=== PATIENT | male | born 1955 | race Caucasian/White ===

== ENCOUNTER 2025-01-30 17:54 | Inpatient (IN) | payer BC ==
[2025-01-30] MEDS ORDERED: CLINDAMYCIN 600MG PREMIX IVPB 600 MG/50 ML BAG IVPB ONE (19:35)
[2025-01-30 19:36] LABS: ABSOLUTE IMMATURE GRANULOCYTES 0.03 x10^3/uL (0.0-0.031); BASOPHILS # 0.03 x10^3/uL (0.01-0.08); EOSINOPHIL % 1.5 % (0.8-7.0); EOSINOPHILS # 0.15 x10^3/uL (0.04-0.54); MCHC 31.6 g/dl (32.3-36.5); MEAN CELL VOLUME 78.4 fl (79.0-92.2); MEAN PLT VOLUME 10.2 fl (9.4-12.4); MONOCYTE # 0.86 x10^3/uL (0.30-0.82); MONOCYTE % 8.5 % (5.3-12.2); RDW 14.0 % (12.2-16.6)
[2025-01-30] MEDS ORDERED: BACITRACIN 0.9 GM PACKET ONE (19:45)
[2025-01-30 19:59] LABS: CO2 29 mmol/L (21-32)
[2025-01-30 20:02] LABS: CREATININE 0.9 mg/dL (0.55-1.3); SGOT/AST 22 U/L (15-37); SGPT/ALT 25 U/L (13-61)
[2025-01-30 20:04] LABS: TOT PROT 7.6 g/dl (6.4-8.2)
[2025-01-30 20:05] LABS: ALK PHOS 72 U/L (45-117)
[2025-01-30 20:31] LABS: GLUCOSE,RANDOM 45 mg/dL (74-106)
[2025-01-30] MEDS: BACITRACIN/POLYMYXIN B SULFATE 15 GM TUBE TP SCH (20:37)
[2025-01-30] MEDS: CLINDAMYCIN 900 MG PREMIX IVPB 900 MG/50 ML BAG IVPB ONE (20:38)
[2025-01-30 20:56] LABS: HIV INTERPRETATION NEGATIVE (NEGATIVE)
[2025-01-30 20:57] LABS: HCV DIAGNOSTIC IN-HOUSE W/RFLX NON-REACTIVE (NONREACTIVE)
[2025-01-30] MEDS: CIPROFLOXACIN 400 MG/D5W 400 MG/200 ML IVPB IVPB ONE (20:59)
[2025-01-30] MEDS ORDERED: VANCOMYCIN/WATER 1250 MG 1,250 MG/250 ML BAG IVPB ONE (21:18)
[2025-01-30] MEDS: VANCOMYCIN/WATER 1250 MG 1,250 MG/250 ML BAG IVPB ONE (21:25)
[2025-01-31] MEDS: morphine CARPU-JECT 2 MG/1 ML DISP.SYRIN IVPUSH PRN (02:11)
[2025-01-31] MEDS: ACETAMINOPHEN 1000 MG/100 ML BAG IVPB PRN (04:58)
[2025-01-31 05:51] VITALS: BMI 25.1
[2025-01-31] MEDS ORDERED: INSULIN GLARGINE (LANTUS) 100 UNITS/ML UNITS SQ SCH (07:00)
[2025-01-31] MEDS: PANTOPRAZOLE 20 MG TABLET PO SCH (07:17)
[2025-01-31] MEDS: INSULIN ASPART SLIDING SCALE (NOVOLOG) 1 VIAL SQ SCH (07:17)
[2025-01-31] MEDS: ENALAPRIL MALEATE 5 MG TABLET PO SCH (09:03)
[2025-01-31] MEDS: PREGABALIN 100 MG CAPSULE PO SCH (09:03)
[2025-01-31] MEDS: ENOXAPARIN NA (PORCINE) 40 MG/0.4 ML DISP.SYRIN SQ SCH (09:03)
[2025-01-31] MEDS: ASPIRIN COATED 81 MG TABLET.EC PO SCH (09:03)
[2025-01-31 11:07] LABS: MCHC 32.0 g/dl (32.3-36.5); MEAN CELL VOLUME 77.1 fl (79.0-92.2); MEAN PLT VOLUME 10.4 fl (9.4-12.4); RDW 13.6 % (12.2-16.6)
[2025-01-31 11:40] LABS: CO2 30.0 mmol/L (21-32); GLUCOSE,RANDOM 235.0 mg/dL (74-106)
[2025-01-31 11:43] LABS: SGOT/AST 13.0 U/L (15-37); SGPT/ALT 18.0 U/L (13-61)
[2025-01-31 11:44] LABS: CREATININE 0.9 mg/dL (0.55-1.3)
[2025-01-31 11:45] LABS: TOT PROT 6.3 g/dl (6.4-8.2)
[2025-01-31 11:46] LABS: ALK PHOS 59.0 U/L (45-117)
[2025-01-31] MEDS: VANCOMYCIN PREMIX 1.5 GM 1,500 MG/300 ML BAG IVPB SCH (12:09)
[2025-01-31] MEDS: CEFEPIME 2 GM in DEXTROSE 5%-WATER 100 ML IVPB SCH (15:51)
[2025-01-31] MEDS: ATORVASTATIN CA 10 MG TABLET (FP) PO SCH (21:03)
[2025-02-01] MEDS: VANCOMYCIN/WATER FOR INJ (PEG) 1,000 MG/200 ML BAG IVPB SCH (00:43)
[2025-02-01 09:15] LABS: ABSOLUTE IMMATURE GRANULOCYTES 0.02 x10^3/uL (0.0-0.031); BASOPHILS # 0.04 x10^3/uL (0.01-0.08); EOSINOPHIL % 2.5 % (0.8-7.0); EOSINOPHILS # 0.16 x10^3/uL (0.04-0.54); MCHC 31.0 g/dl (32.3-36.5); MEAN CELL VOLUME 78.5 fl (79.0-92.2); MEAN PLT VOLUME 10.5 fl (9.4-12.4); MONOCYTE # 0.53 x10^3/uL (0.30-0.82); MONOCYTE % 8.4 % (5.3-12.2); RDW 13.7 % (12.2-16.6)
[2025-02-01 09:46] LABS: TOT PROT 6.9 g/dl (6.4-8.2)
[2025-02-01 09:47] LABS: ALK PHOS 66.0 U/L (45-117)
[2025-02-01 09:49] LABS: SGPT/ALT 19.0 U/L (13-61)
[2025-02-01 09:52] LABS: SGOT/AST 12.0 U/L (15-37)
[2025-02-01 09:55] LABS: CO2 28.0 mmol/L (21-32)
[2025-02-01 09:56] LABS: GLUCOSE,RANDOM 193.0 mg/dL (74-106)
[2025-02-01 09:59] LABS: CREATININE 0.9 mg/dL (0.55-1.3)
[2025-02-01] MEDS: ATORVASTATIN CA 20 MG TABLET (FP) PO SCH (21:49)
[2025-02-02] MEDS ORDERED: VANCOMYCIN PREMIX 1.5 GM 1,500 MG/300 ML BAG IVPB SCH (09:00)
[2025-02-02 09:11] LABS: CO2 29.0 mmol/L (21-32)
[2025-02-02 09:12] LABS: GLUCOSE,RANDOM 216.0 mg/dL (74-106)
[2025-02-02 09:15] LABS: CREATININE 0.9 mg/dL (0.55-1.3)
[2025-02-02] MEDS: INSULIN ASPART SLIDING SCALE (NOVOLOG) 1 VIAL SQ SCH (21:28)
[2025-02-02] MEDS: INSULIN GLARGINE (LANTUS) 100 UNITS/ML UNITS SQ SCH (21:29)
[2025-02-03 08:31] LABS: MCHC 31.8 g/dl (32.3-36.5); MEAN CELL VOLUME 77.6 fl (79.0-92.2); MEAN PLT VOLUME 10.4 fl (9.4-12.4); RDW 13.5 % (12.2-16.6)
[2025-02-03 09:19] LABS: CO2 29.0 mmol/L (21-32); GLUCOSE,RANDOM 165.0 mg/dL (74-106)
[2025-02-03 09:22] LABS: CREATININE 0.9 mg/dL (0.55-1.3)
[2025-02-03] MEDS: INSULIN GLARGINE (LANTUS) 100 UNITS/ML UNITS SQ SCH (22:13)
[2025-02-04 08:50] LABS: MCHC 31.2 g/dl (32.3-36.5); MEAN CELL VOLUME 78.3 fl (79.0-92.2); MEAN PLT VOLUME 10.4 fl (9.4-12.4); RDW 13.5 % (12.2-16.6)
[2025-02-04 09:17] LABS: ACTIVATED PTT 32.2 SECONDS (25.2-36.5); INR 1.14 (0.83-1.09); PROTHROMBIN TIME (PATIENT) 12.4 SEC (9.7-13.0)
[2025-02-04 09:46] LABS: CO2 27.0 mmol/L (21-32)
[2025-02-04 09:47] LABS: GLUCOSE,RANDOM 141.0 mg/dL (74-106)
[2025-02-04 09:50] LABS: CREATININE 0.9 mg/dL (0.55-1.3)
[2025-02-06 08:42] LABS: ABSOLUTE IMMATURE GRANULOCYTES 0.03 x10^3/uL (0.0-0.031); BASOPHILS # 0.06 x10^3/uL (0.01-0.08); EOSINOPHIL % 3.5 % (0.8-7.0); EOSINOPHILS # 0.28 x10^3/uL (0.04-0.54); MCHC 31.7 g/dl (32.3-36.5); MEAN CELL VOLUME 77.0 fl (79.0-92.2); MEAN PLT VOLUME 10.1 fl (9.4-12.4); MONOCYTE # 0.53 x10^3/uL (0.30-0.82); MONOCYTE % 6.6 % (5.3-12.2); RDW 13.4 % (12.2-16.6)
[2025-02-06 08:49] LABS: INR 1.14 (0.83-1.09); PROTHROMBIN TIME (PATIENT) 12.4 SEC (9.7-13.0)
[2025-02-06 09:39] LABS: CO2 27.0 mmol/L (21-32); GLUCOSE,RANDOM 146.0 mg/dL (74-106)
[2025-02-06 09:42] LABS: CREATININE 0.9 mg/dL (0.55-1.3); SGOT/AST 19.0 U/L (15-37); SGPT/ALT 25.0 U/L (13-61)
[2025-02-06 09:43] LABS: TOT PROT 6.8 g/dl (6.4-8.2)
[2025-02-06 09:45] LABS: ALK PHOS 70.0 U/L (45-117)
[2025-02-06] MEDS ORDERED: LIDOCAINE HCL 2% (20ML MULTI-DOSE VIAL) ONE (10:10)
[2025-02-06] MEDS ORDERED: BUPIVACAINE HCL/PF 0.5% (5MG/ML) 10 ML VIAL ONE (10:10)
[2025-02-06] MEDS ORDERED: ONDANSETRON 4 MG/2 ML VIAL IVPUSH PRN ×2 (11:04→13:01)
[2025-02-06] MEDS ORDERED: LACTATED RINGERS SOLUTION 1,000 ML IV SCH (11:15)
[2025-02-06] MEDS ORDERED: MIDAZOLAM HCL 2 MG/2 ML SINGLE DOSE VIAL ONE (11:59)
[2025-02-06] MEDS ORDERED: LIDOCAINE HCL 1%, 10 MG/ML (20ML VIAL) ONE (12:03)
[2025-02-06] MEDS: LIDOCAINE HCL 2% (50ML VIAL) INF ONE ×2 (12:29)
[2025-02-06] MEDS: BUPIVACAINE HCL/PF 0.5% (5 MG/ML) 30 ML VIAL IJ ONE ×2 (12:29)
[2025-02-06] MEDS: VANCOMYCIN/WATER FOR INJ (PEG) 1,000 MG/200 ML BAG IVPB SCH (15:30)
[2025-02-06] MEDS: INSULIN ASPART SLIDING SCALE (NOVOLOG) 1 VIAL SQ SCH (17:12)
[2025-02-06] MEDS: ATORVASTATIN CA 20 MG TABLET (FP) PO SCH (22:07)
[2025-02-06] MEDS: INSULIN GLARGINE (LANTUS) 100 UNITS/ML UNITS SQ SCH (22:07)
[2025-02-06] MEDS: LACTATED RINGERS SOLUTION 1,000 ML IV SCH (22:13)
[2025-02-07] MEDS ORDERED: VANCOMYCIN/WATER FOR INJ (PEG) 1,000 MG/200 ML BAG IVPB SCH
[2025-02-07] MEDS: PANTOPRAZOLE 20 MG TABLET PO SCH (07:22)
[2025-02-07 08:41] LABS: MCHC 31.8 g/dl (32.3-36.5); MEAN CELL VOLUME 77.0 fl (79.0-92.2); MEAN PLT VOLUME 10.4 fl (9.4-12.4); RDW 13.3 % (12.2-16.6)
[2025-02-07 09:39] LABS: CO2 30.0 mmol/L (21-32)
[2025-02-07 09:40] LABS: GLUCOSE,RANDOM 106.0 mg/dL (74-106)
[2025-02-07 09:42] LABS: CREATININE 0.8 mg/dL (0.55-1.3); SGOT/AST 18.0 U/L (15-37); SGPT/ALT 23.0 U/L (13-61)
[2025-02-07 09:44] LABS: TOT PROT 6.7 g/dl (6.4-8.2)
[2025-02-07 09:45] LABS: ALK PHOS 71.0 U/L (45-117)
[2025-02-07] MEDS: NAPH,MB-DB/K PH,MBDB POWDER PACKET PO ONE ×2 (09:49→11:26)
[2025-02-07] MEDS: ASPIRIN COATED 81 MG TABLET.EC PO SCH (09:50)
[2025-02-07] MEDS: PREGABALIN 100 MG CAPSULE PO SCH (09:51)
[2025-02-07] MEDS: ENALAPRIL MALEATE 5 MG TABLET PO SCH (09:51)
[2025-02-07] MEDS: BACITRACIN/POLYMYXIN B SULFATE 15 GM TUBE TP SCH (11:26)
[2025-02-07] MEDS: ENOXAPARIN NA (PORCINE) 40 MG/0.4 ML DISP.SYRIN SQ SCH (14:09)
[2025-02-08 09:14] LABS: MCHC 31.2 g/dl (32.3-36.5); MEAN CELL VOLUME 78.2 fl (79.0-92.2); MEAN PLT VOLUME 10.5 fl (9.4-12.4); RDW 13.7 % (12.2-16.6)
[2025-02-08 09:40] LABS: CO2 29.0 mmol/L (21-32); GLUCOSE,RANDOM 129.0 mg/dL (74-106)
[2025-02-08 09:43] LABS: CREATININE 0.8 mg/dL (0.55-1.3); SGOT/AST 34.0 U/L (15-37); SGPT/ALT 30.0 U/L (13-61)
[2025-02-08 09:45] LABS: TOT PROT 6.6 g/dl (6.4-8.2)
[2025-02-08 09:46] LABS: ALK PHOS 66.0 U/L (45-117)
[2025-02-09 07:40] LABS: MCHC 31.3 g/dl (32.3-36.5); MEAN CELL VOLUME 77.5 fl (79.0-92.2); MEAN PLT VOLUME 10.0 fl (9.4-12.4); RDW 13.7 % (12.2-16.6)
[2025-02-09 08:33] LABS: GLUCOSE,RANDOM 126.0 mg/dL (74-106)
[2025-02-09 08:34] LABS: CO2 29.0 mmol/L (21-32)
[2025-02-09 08:37] LABS: CREATININE 0.8 mg/dL (0.55-1.3)
[2025-02-10 08:18] LABS: ABSOLUTE IMMATURE GRANULOCYTES 0.01 x10^3/uL (0.0-0.031); BASOPHILS # 0.06 x10^3/uL (0.01-0.08); EOSINOPHIL % 4.1 % (0.8-7.0); EOSINOPHILS # 0.19 x10^3/uL (0.04-0.54); MCHC 31.5 g/dl (32.3-36.5); MEAN CELL VOLUME 77.1 fl (79.0-92.2); MEAN PLT VOLUME 10.2 fl (9.4-12.4); MONOCYTE # 0.35 x10^3/uL (0.30-0.82); MONOCYTE % 7.6 % (5.3-12.2); RDW 13.7 % (12.2-16.6)
[2025-02-10 08:42] LABS: CO2 30.0 mmol/L (21-32)
[2025-02-10 08:43] LABS: GLUCOSE,RANDOM 123.0 mg/dL (74-106)
[2025-02-10 08:45] LABS: CREATININE 0.8 mg/dL (0.55-1.3); SGOT/AST 35.0 U/L (15-37); SGPT/ALT 39.0 U/L (13-61)
[2025-02-10 08:46] LABS: TOT PROT 6.9 g/dl (6.4-8.2)
[2025-02-10 08:48] LABS: ALK PHOS 69.0 U/L (45-117)
[2025-02-10 19:01] VITALS: BP 153/76; PULSE 72; RESP 20; TEMP 97.7
== END 2025-02-10 21:15 | disposition home or self-care (01) | DRG 580 ==
LOC: JER 17:54 → JERBED 21:30 → J6S 01-31 01:12 → J7W 01-31 11:05
PROVIDERS: ADMIT Hospitalist
PROC: 0QBQ3ZX Excision of Right Toe Phalanx, Percutaneous Approach, Diagnostic (ICD-10-PCS; principal; 2025-02-06 13:00)
DX: L03.115 Cellulitis of right lower limb (principal); L02.611 Cutaneous abscess of right foot; M86.8X7 Other osteomyelitis, ankle and foot; I10 Essential (primary) hypertension; E11.42 Type 2 diabetes mellitus with diabetic polyneuropathy; K21.9 Gastro-esophageal reflux disease without esophagitis; N40.0 Benign prostatic hyperplasia without lower urinary tract symptoms; Z88.0 Allergy status to penicillin; E11.65 Type 2 diabetes mellitus with hyperglycemia; D63.8 Anemia in other chronic diseases classified elsewhere; Z79.4 Long term (current) use of insulin
CPT/HCPCS: 36415; 71045-TC-FY; 73610-TC-RT-FY; 73630-TC-RT-FY; 73718-TC-RT; 80048; 80053; 82550; 82962; 83036; 83735; 84100; 85025; 85027; 85610; 85651; 85730; 86140; 86803; 87070; 87075; 87076; 87081; 87205; 87389; 93922; 93926-TC; 93971-TC-RT; 94760; 97116-GP; 97162-GP; 99285-25; G0480